=== PATIENT | male | born 1985 | race Caucasian/White ===

== ENCOUNTER 2017-10-09 09:50 | Emergency (ER) | payer OTHER ==
[~2017-10-09] VITALS: Ht 188 cm; Wt 86.0 kg
[~2017-10-09 09:50] MED LIST: AZIT1PAC PO; CEPH500C5 PO; HYDR28CR14 TOP; PERM60CR19 TP; [UNRECOGNIZED DRUG - CODE] TP
[2017-10-09 09:54] VITALS: BP 123/49
[2017-10-09] MEDS ORDERED: SULF1TAB49 PO (10:48)
[2017-10-09] MEDS ORDERED: CEPH500C5 PO (10:48)
== END 2017-10-09 11:05 | disposition home or self-care (01) ==
LOC: ER 09:50
DX: J34.0 Abscess, furuncle and carbuncle of nose (principal); B95.8 Unspecified staphylococcus as the cause of diseases classified elsewhere; F12.10 Cannabis abuse, uncomplicated; Z79.899 Other long term (current) drug therapy
CPT/HCPCS: 99283